=== PATIENT | female | born 1990 | race Caucasian/White ===

== ENCOUNTER 2018-09-25 13:42 | Emergency (ER) | payer OTHER, MEDICAID ==
[2018-09-25] MEDS: ACETAMINOPHEN 325 MG TAB PO (16:50)
[2018-09-25] MEDS: ONDANSETRON (ODT) 4 MG TAB ODT (16:51)
== END 2018-09-25 17:06 | disposition home or self-care (01) ==
LOC: FTE 13:42
DX: R11.2 Nausea with vomiting, unspecified (principal); R19.7 Diarrhea, unspecified
CPT/HCPCS: 99283; Z7502